=== PATIENT | female | born 1980 | race American Indian/Alaskan Native ===

== ENCOUNTER 2019-02-25 08:11 | Outpatient (CLI) | payer BC ==
--- NOTE | 2019-02-25 10:37 | Fluoroscopy Report ---
UPPER GI AIR CONTRAST: History: Functional dyspepsia, bariatric surgery status. Comparison: None at this facility. FINDINGS: The patient ingested barium without difficulty. The esophageal contour is normal. There are no ulcerations or filling defects seen in the esophagus. Esophageal motility appears slightly decreased with delayed emptying into the stomach. No evidence for hiatal hernia or reflux. Gastric sleeve surgical changes are identified and appear intact. There is no obvious ulceration or extravasation. The remainder of the gastric cavity is unremarkable. Normal mucosal pattern. The duodenal bulb and duodenal sweep are within normal limits. IMPRESSION: Negative double contrast upper GI examination. Stable appearance of the gastric sleeve surgical changes.
== END 2019-02-25 08:12 | disposition home or self-care (01) ==
LOC: FLUORO 08:11
PROVIDERS: ATTEND Specialist
DX: K30 Functional dyspepsia (principal); K31.9 Disease of stomach and duodenum, unspecified; Z98.84 Bariatric surgery status; Z98.890 Other specified postprocedural states
CPT/HCPCS: 74247